=== PATIENT | female | born 1995 | race Two or more races ===

== ENCOUNTER 2017-06-18 15:39 | Emergency (ER) | payer MEDICAID, OTHER ==
[~2017-06-18] VITALS: Ht 165.1 cm; Wt 55.3 kg
[2017-06-18 17:00] VITALS: BP 132/78
== END 2017-06-18 20:20 | disposition left against medical advice (07) ==
LOC: ER 15:54
DX: S91.111A Laceration without foreign body of right great toe without damage to nail, initial encounter (principal); W25.XXXA Contact with sharp glass, initial encounter; Y93.89 Activity, other specified; Y92.89 Other specified places as the place of occurrence of the external cause; Y99.8 Other external cause status; Z53.21 Procedure and treatment not carried out due to patient leaving prior to being seen by health care provider